=== PATIENT | male | born 1955 | race Caucasian/White ===

== ENCOUNTER 2018-09-27 18:31 | Emergency (ER) | payer MEDICARE ==
[~2018-09-27] VITALS: Ht 180.3 cm; Wt 145.2 kg
[~2018-09-27 18:31] MED LIST: ASMANEX220 MC1 INH; ASPIRIN EC81 MG PO; CLONAZEPAM2 MG PO; COMBIVENT RESPIM4 GM; DULERA 100 MCG/13 GM INH; GABAPENTIN300 MG PO; LEVOTHYROXINE50 MCG; LIPITOR40 MG PO; METFORMIN HCL500 MG PO; ONE DAILY1 EAC1 PO; PREDNISONE20 MG PO; RISPERDAL1 MG PO; SYMBICORT 16010.2 GM INH; VITAMIN D5000 UNIT PO
[2018-09-27] MEDS ORDERED: WELLBUTRIN SR150 MG PO (19:38)
[2018-09-27] MEDS ORDERED: RISPERDAL4 MG PO (19:38)
[2018-09-27] MEDS ORDERED: CLONAZEPAM0.5 MG PO (19:38)
[2018-09-27] MEDS ORDERED: CLONAZEPAM1 MG PO (20:52)
== END 2018-09-27 21:07 | disposition home or self-care (01) ==
LOC: ED 18:31
DX: Z76.0 Encounter for issue of repeat prescription (principal); E11.9 Type 2 diabetes mellitus without complications; J44.9 Chronic obstructive pulmonary disease, unspecified; E78.5 Hyperlipidemia, unspecified; I10 Essential (primary) hypertension; G47.30 Sleep apnea, unspecified; F17.200 Nicotine dependence, unspecified, uncomplicated; Z87.01 Personal history of pneumonia (recurrent); Z88.8 Allergy status to other drugs, medicaments and biological substances; Z79.84 Long term (current) use of oral hypoglycemic drugs; Z79.82 Long term (current) use of aspirin; Z79.899 Other long term (current) drug therapy
CPT/HCPCS: 99281